=== PATIENT | female | born 1970 | race Caucasian/White ===

== ENCOUNTER → 2019-01-06 08:50 | Outpatient (CLI) | payer OTHER, SELFPAY ==
[2019-01-06 11:08] LABS: Creatinine, Serum 0.88 mg/dL (0.55-1.02); EST Glomerular Filtration Rate 72 mL/min (>60); Est Glom Filt Rate - Afr Amer 87 mL/min (>60)
== END ==
PROVIDERS: Family Provider Internal Medicine; PCP Internal Medicine; Referring Provider Specialist; Visit Provider Specialist
DX: N18.9 Chronic kidney disease, unspecified (principal)
CPT/HCPCS: 36415; 82565

== ENCOUNTER → 2020-06-15 16:24 | Outpatient (CLI) | payer OTHER, SELFPAY ==
[2020-06-15 18:14] LABS: Creatinine, Serum 0.88 mg/dL (0.55-1.02); EST Glomerular Filtration Rate 72 mL/min (>60); Est Glom Filt Rate - Afr Amer 87 mL/min (>60)
== END ==
PROVIDERS: PCP Internal Medicine; Referring Provider Specialist; Visit Provider Specialist
DX: M79.661 Pain in right lower leg (principal)
CPT/HCPCS: 36415; 82565

== ENCOUNTER → 2020-09-27 12:06 | Outpatient (CLI) | payer OTHER, SELFPAY ==
[2020-09-27 11:13] VITALS: BMI 44.6
[2020-09-27 15:28] LABS: Vitamin B12 325 pg/mL (211-911); Vitamin D,25 Hydroxy 40.6 ng/mL
[2020-09-27 15:33] LABS: Calcium,Total 9.3 mg/dL (8.5-10.1); Ferritin 61 ng/mL (8-252); T4 Free Direct 0.86 ng/dL (0.76-1.46); Thyroid Stim Hormone (TSH) 1.72 uIU/mL (0.358-3.74)
[2020-09-28 09:39] LABS: PTHIN 66.5 pg/mL (18.4-80.1)
== END ==
PROVIDERS: PCP Internal Medicine; Referring Provider Internal Medicine Endocrinology, Diabetes & Metabolism; Visit Provider Internal Medicine Endocrinology, Diabetes & Metabolism
DX: E55.9 Vitamin D deficiency, unspecified (principal); N25.81 Secondary hyperparathyroidism of renal origin; R53.81 Other malaise; R53.83 Other fatigue; R20.2 Paresthesia of skin
CPT/HCPCS: 36415; 82306; 82310; 82607; 82728; 83970; 84439; 84443